=== PATIENT | female | born 1990 | race Caucasian/White ===

== ENCOUNTER 2022-11-02 13:37 | Inpatient (IN) | payer BC ==
[~2022-11-02] VITALS: Ht 157.5 cm; Wt 129.1 kg
[2022-11-03] VITALS (38 sets, daily range): BP systolic 107–162; BP diastolic 55–93; PULSE 64–120; TEMP 97.5–98.5
--- NOTE | 2022-11-03 06:50 | NUR ---
PT ABULATORY TO UNIT FOR INDUCTION OF LABOR. PT DENIES CONTRATIONS, DENIES BLEEDING, DENIES LEAKING OF FLUID, AND DENIES DECREASED MOVEMENT. EFM AND TOCO APPLIED AND VITAL SIGNS OBTAINED. CONSENT FORMS SIGNED, PLAN OF CARE REVIEWED, AND ALL QUESTIONS ANSWERED.
[2022-11-03] MEDS ORDERED: NORMODYNE200 MG PO (07:02)
[2022-11-03] MEDS ORDERED: PROFE180 MG PO (07:03)
[2022-11-03] MEDS ORDERED: PRENATAL TABLET PO (07:03)
[2022-11-03] MEDS ORDERED: ZYRTEC 10MG10 MG PO (07:04)
[2022-11-03] MEDS ORDERED: FLONASE NASAL S16 GM NS (07:05)
[2022-11-03 08:05] LABS: COLLECTION METHOD CLEAN CATCH
--- NOTE | 2022-11-03 08:30 | NUR ---
DR. BAER ON UNIT, UPDATED ON PT STATUS. NOTIFIED OF RECCURRENT LATE DELCELS AT [phone], RESOLVED WITH REPOSITIONING PT ONTO LL BR. PT ON PITOCIN.
[2022-11-03 08:31] LABS: MUCOUS Present (NOT PRESENT); SQUAMOUS EPITHELIAL 20-50 /hpf (0-10); URINE BACTERIA Rare /hpf (NONE SEEN); URINE WBC 20-50 /hpf (0-2)
[2022-11-03 08:33] LABS: URINE APPEARANCE Hazy (CLEAR/HAZY); URINE COLOR Yellow (YELLOW)
[2022-11-03 08:35] LABS: ALBUMIN 2.6 gm/dL (3.5-5.0); BILIRUBIN,TOTAL 0.2 mg/dL (0.2-1.2); CALCIUM 8.6 mg/dL (8.4-10.2); CREATININE, serum 0.63 mg/dL (0.57-1.11); PH 6.5 (5.0-8.5); POTASSIUM 3.9 mmol/L (3.5-4.5); TOTAL PROTEIN 6.3 gm/dL (6.2-8.1); URINE PROTEIN(semi-quant) 1+ (NEGATIVE)
[2022-11-03 08:36] LABS: URINE BLOOD Negative (NEGATIVE); URINE GLUCOSE Negative (NEGATIVE); URINE KETONE Negative (NEGATIVE); URINE NITRATE Negative (NEGATIVE); URINE UROBILINOGEN 0.2 E.U/dL (0.2-1.0)
[2022-11-03 08:38] LABS: BASO % 0.2 % (0.0-2.0); EOS # 0.2 K/mm3 (0.0-0.7); EOS % 1.5 % (0.0-4.0); GRAN # 6.4 K/mm3 (1.4-6.5); GRAN % 65.5 % (42.2-75.2); HEMATOCRIT 31.4 % (37.0-47.0); HEMOGLOBIN 10.1 g/dl (12.5-16.0); LYMPH # 2.6 K/mm3 (1.2-3.4); LYMPH % 26.6 % (20.0-51.0); MEAN CELL VOLUME 86 fl (80.0-100.0); MEAN CORPUSCULAR HEMOGLOBIN 28 pg (27-31); MEAN CORPUSCULAR HGB CONC 32 g/dl (33.0-37.0); MEAN PLATELET VOLUME 11.3 fl (7.4-10.4); MONO # 0.6 K/mm3 (0.1-0.6); MONO % 5.8 % (1.7-9.3); PLATELET COUNT 234 K/mm3 (130-400); RED BLOOD COUNT 3.64 M/mm3 (4.10-5.30); REDCELL DISTRIBUTION WIDTH-CV 14.8 % (11.5-14.5)
--- NOTE | 2022-11-03 11:00 | NUR ---
DR. BAER AT BEDSIDE. SVE /-2, AROM AT 1100, CLEAR LIQUID NOTED. FSE APPLIED TO TRACE HEART TONES MORE ACCURATELY.
--- NOTE | 2022-11-03 11:49 | NUR ---
PT SITTING UPRIGHT ON THE EDGE OF THE BED FOR EPIDURAL PLACEMENT. TILLER MAN AT BEDSIDE. FSE IN PLACE AND TOCO TRACING INTERMITTENTLY DUE TO MATERNAL POSITIONING. PULSE ON ON TRACING MATERNAL HR AND BP Q5 MINS. SINGLE SHOT DOSE GIVEN AT 1149. PT TOLERATED PROCEDURE WELL AND ASSISTED BACK INTO A COMFORTABLE POSITION IN BED. IV FLUIDS INFUSING.
--- NOTE | 2022-11-03 13:16 | NUR ---
DR. BAER AT BEDSIDE EDUCATING PARENTS ON HEART RATE CHANGES AND POTENTIAL NEED FOR C/S IN WE CONTINUE TO HAVE PROBLEMS WITH THE HEART RATE AND THE BABY DOESN'T TOLERATE PITOCIN. SVE: . IUPC INSERTED TO TRACE CONTRACTION PATTERN.
--- NOTE | 2022-11-03 14:26 | NUR ---
1426- PT COMPLETE 1440- RANKIN REMOVED AND DR BAER AT BEDSIDE. 1442- PT BEGINS PUSHING AND THE RN REMAINS AT BEDSIDE THROUGHOUT. 1447- SPONTANEOUS VAGINAL DELIVERY OF VIABLE FEMALE INFANT. NUCHAL CORD X1 NOTED. CORD CLAMPED AND CUT MY FATHER. INFANT PLACED ON MOTHER'S ABDOMEN AND CARE OF INFANT TRANSFERRED TO NURSERY RN. 1453- SPONTANEOUS DELIVERY OF PLACENTA, PERINEUM FOUND TO BE INTACT. 100ML OF QBL NOTED, FUNDUS FIRM AND LOCHIA WNL
--- NOTE | 2022-11-03 17:30 | NUR ---
PT UP AND TRANSPORTED TO RESTROOM VIA Polybiotics. PT DENIES LIGHTHEADEDNESS. PT VOIDED AND CLEANED, DRESSED IN CLEAN GOWN AND UNDERWEAR. TRANSPORTED TO ROOM VIA Polybiotics. ACCOMPANIED BY FATHER AND .
[2022-11-04 01:25] VITALS: BP 121/69; PULSE 90; TEMP 97.9
[2022-11-04 05:24] LABS: HEMATOCRIT 29.2 % (37.0-47.0); HEMOGLOBIN 9.8 g/dl (12.5-16.0)
[2022-11-04 05:27] VITALS: BP 138/91; PULSE 85; TEMP 98
[2022-11-04 08:00] VITALS: BP 135/76; PULSE 82; TEMP 97.7
[2022-11-04] MEDS ORDERED: TRANDATE 200MG200 MG PO (08:00)
== END 2022-11-04 16:20 | disposition home or self-care (01) | DRG 807 ==
LOC: OB 11-03 06:29 → LDR 11-03 06:29 → OB 11-03 13:36
PROVIDERS: ADMIT Obstetrics & Gynecology
PROC: 10E0XZZ Delivery of Products of Conception, External Approach (ICD-10-PCS; principal; 2022-11-03)
PROC: 3E033VJ Introduction of Other Hormone into Peripheral Vein, Percutaneous Approach (ICD-10-PCS; 2022-11-03)
DX: O11.4 Pre-existing hypertension with pre-eclampsia, complicating childbirth (principal); Z37.0 Single live birth; O99.02 Anemia complicating childbirth; D64.9 Anemia, unspecified; Z3A.38 38 weeks gestation of pregnancy; O99.214 Obesity complicating childbirth; O76 Abnormality in fetal heart rate and rhythm complicating labor and delivery; O69.81X0 Labor and delivery complicated by cord around neck, without compression, not applicable or unspecified; Z23 Encounter for immunization
CPT/HCPCS: J2590; J2795; J7120